=== PATIENT | female | born 2000 | race African-American/Black ===

== ENCOUNTER 2020-04-01 18:08 | Observation (INO) | payer MEDICAID, SELFPAY ==
--- NOTE | 2020-04-01 18:02 | PC.NURSE ---
pt to ob triage. report to etelvina whitaker.
[2020-04-01 18:35] VITALS: BP 115/73; PULSE 84
[2020-04-01 18:45] VITALS: BP 113/67; PULSE 84
[2020-04-01 19:24] LABS: Add Urine Microscopic? YES; Appearance Urine Cloudy (Clear); Bacteria Urine Trace /hpf; Bilirubin Urine Negative (Negative); Blood Urine 2+ (Negative); Color Urine Yellow (Yellow); Glucose Urine UA Negative (Negative); Ketones Urine Negative (Negative); Leukocyte Esterase Ur Trace LEU/UL (NEGATIVE); Mucus Urine Rare /lpf; Nitrate Urine Negative (Negative); Protein Urine Negative (Negative); RBC Urine 21-50 /hpf (0-2); Specific Grav Ur 1.015 (1.001-1.035); Squamous Epithelial Cell Urine Many /hpf (Few); Uric Acid Crystals Urine Present /hpf
[2020-04-01 20:25] VITALS: BMI 24.9
[2020-04-01] MEDS: cefTRIAXone 1 GM VIAL IM (21:00)
--- NOTE | 2020-04-01 21:19 | OBADM ---
This patient, Charlie Guzman, admitted to the OB room [facility] for observation. Patient/family oriented to hospital policies and general routines including ID bracelet, bed and alarms, visiting hours, pain management, procedures, bathroom and other care routines, personal items, smoking policy, room service/diet, and visiting hours. Patient/Family are encouraged to report perceived risks to care and to ask questions if they do not understand what they are told or what they should do.
[2020-04-01 21:42] VITALS: BP 111/71; PULSE 84
--- NOTE | 2020-04-04 22:10 | PM.OBTRLD ---
OB - Triage/Final Diagnosis Visit Information Reason for evaluation: decreased movement Evaluation Laboratory results: Laboratory Tests 04/01/20 19:01 Urine Color Yellow Urine Appearance Cloudy H Urine pH 6.0 Ur Specific [place] 1.015 Urine Protein Negative Urine Glucose (UA) Negative Urine Ketones Negative Ur Blood (Man) 2+ H Urine Nitrate Negative Urine Bilirubin Negative Urine Urobilinogen 4.0 H Ur Leukocyte Esterase Trace H Urine RBC 21-50 H Urine WBC 7-9 H Ur Squamous Epith Cells Many H Uric Acid Crystals Present H Urine Bacteria Trace Hyaline Casts 1-2 Urine Mucus Rare
--- NOTE | 2020-04-06 11:12 | PM.OBTRLD ---
OB - Triage/Final Diagnosis Evaluation Laboratory results: Laboratory Tests 04/01/20 19:01 Urine Color Yellow Urine Appearance Cloudy H Urine pH 6.0 Ur Specific [place] 1.015 Urine Protein Negative Urine Glucose (UA) Negative Urine Ketones Negative Ur Blood (Man) 2+ H Urine Nitrate Negative Urine Bilirubin Negative Urine Urobilinogen 4.0 H Ur Leukocyte Esterase Trace H Urine RBC 21-50 H Urine WBC 7-9 H Ur Squamous Epith Cells Many H Uric Acid Crystals Present H Urine Bacteria Trace Hyaline Casts 1-2 Urine Mucus Rare Final Diagnosis (1) Decreased movement affecting management of mother, antepartum: Code(s): O36.8190 - Decreased movements, unspecified trimester, not applicable or unspecified Status: Acute
== END 2020-04-01 21:58 | disposition home or self-care (01) ==
PROVIDERS: Admitting Provider Obstetrics & Gynecology; Visit Provider Obstetrics & Gynecology
DX: O36.8120 Decreased fetal movements, second trimester, not applicable or unspecified (principal); Z3A.24 24 weeks gestation of pregnancy
CPT/HCPCS: 81001; 87086; A9270; G0378; G0379; J0696